=== PATIENT | male | born 1990 | race Caucasian/White ===

== ENCOUNTER 2017-01-05 19:22 | Emergency (ER) | payer OTHER ==
[~2017-01-05] VITALS: Ht 175.3 cm; Wt 89.0 kg
[~2017-01-05 19:22] MED LIST: LOMO PO; PROM25R PR; ZOFR4TAB3 SL
[2017-01-05 19:25] VITALS: BP 118/74; PULSE 93; RESP 18; TEMP 100.3; O2SAT 96
[2017-01-05] MEDS ORDERED: SODIUM CHLOR 0.9% 1000 ML INJ 1,000 ML IV SCH (19:56)
[2017-01-05] MEDS ORDERED: DICYCLOMINE HCL 10 MG CAP PO ONE (20:00)
[2017-01-05] MEDS ORDERED: ONDANSETRON HCL 4 MG/2 ML VIAL IVP ONE (20:00)
[2017-01-05] MEDS ORDERED: SODIUM CHLOR 0.9% 1000 ML INJ 1,000 ML IV ONE (20:00)
[2017-01-05] MEDS ORDERED: FAMOTIDINE 20 MG/2 ML VIAL IV PUSH ONE (20:00)
[2017-01-05] MEDS ORDERED: SODIUM CHLORIDE 0.9% FLUSH 10 ML FLUSH IV FLUSH PRN (20:00)
--- NOTE | 2017-01-05 20:19 | PD ---
HPI Chief Complaint: GI Complaint Time Seen by Provider: 19:52 Travel History International Travel<30 days: No Contact w/Intl Traveler<30days: No Traveled to known affect area: No History of Present Illness HPI Patient is a 26-year-old male who presents to emergency room with complaints of nausea, vomiting, diarrhea. Patient reports that this morning, he had breakfast at [employer], he reports that shortly after he had this meal, he began to feel nauseous and began to vomit. Reports that he has been vomiting all day, reports that he has not been able to keep down any fluids. Reports that he has had about 3 bouts of diarrhea today. Patient reports no abdominal pain, no fevers or chills. Patient with no sick contacts, denies any recent travels. Patient with no other complaints at this time. PFSH Past Medical History Autoimmune Disease: Yes Blood Disorders: No Anxiety: No Depression: No Cancer: No Cardiovascular Problems: No Diabetes: No Diminished Hearing: No Glaucoma: No Genitourinary: Yes Hepatitis: No Hiatal Hernia: No Hypertension: No Musculoskeletal: No Neurologic: No Psychiatric: No Respiratory: Yes Immunizations Current: Yes Thyroid Disease: No Tetanus Vaccination: Unknown Influenza Vaccination: No Past Surgical History Abdominal Surgery: No Cardiac Surgery: No Ear Surgery: No Endocrine Surgery: No Eye Surgery: No Genitourinary Surgery: No Gynecologic Surgery: No Oral Surgery: No Pacemaker: No Thoracic Surgery: No Tonsillectomy: Yes Other Surgery: No Social History Alcohol Use: Yes (SOCIAL) Tobacco Use: No Substance Use: No Allergies-Medications (Allergen,Severity, Reaction): Coded Allergies: No Known Allergies (Verified , 01/05/17) Reported Meds & Prescriptions Reported Meds & Active Scripts Active Review of Systems General / Constitutional: No: Fever, Chills Eyes: No: Visual changes HENT: No: Headaches Cardiovascular: No: Chest Pain or Discomfort Respiratory: No: Shortness of Breath Gastrointestinal: Positive: Nausea, Vomiting, Diarrhea, No: Abdominal Pain Genitourinary: No: Dysuria Musculoskeletal: No: Pain Skin: No Rash Neurologic: No: Weakness Psychiatric: No: Depression Endocrine: No: Polydipsia Hematologic/Lymphatic: No: Easy Bruising Physical Exam Narrative GENERAL: No acute distress, nontoxic SKIN: Focused skin assessment warm/dry. HEAD: Atraumatic. Normocephalic. EYES: Pupils equal and round. No scleral icterus. No injection or drainage. ENT: No nasal bleeding or discharge. Mucous membranes pink and moist. NECK: Trachea midline. No JVD. CARDIOVASCULAR: Regular rate and rhythm. No murmur appreciated. RESPIRATORY: No accessory muscle use. Clear to auscultation. Breath sounds equal bilaterally. GASTROINTESTINAL: Abdomen soft, non-tender, nondistended. MUSCULOSKELETAL: No obvious deformities. No clubbing. No cyanosis. No edema. NEUROLOGICAL: Awake and alert. Normal speech. PSYCHIATRIC: Appropriate mood and affect; insight and judgment normal. Data Data Last Documented VS Vital Signs Date Time Temp Pulse Resp B/P Pulse Ox O2 Delivery O2 Flow Rate FiO2 01/05/17 21:07 99.8 85 18 140/62 98 Room Air Orders Complete Blood Count With Diff (01/05/17 19:56) Comprehensive Metabolic Panel (01/05/17 19:56) Lipase (01/05/17 19:56) Urinalysis - C+S If Indicated (01/05/17 19:56) Iv Access Insert/Monitor (01/05/17 19:56) Ondansetron Inj (Zofran Inj) (01/05/17 20:00) Sodium Chlor 0.9% 1000 Ml Inj (Ns 1000 M (01/05/17 19:56) Sodium Chloride 0.9% Flush (Ns Flush) (01/05/17 20:00) Famotidine Inj (Pepcid Inj) (01/05/17 20:00) Dicyclomine (Bentyl) (01/05/17 20:00) Sodium Chlor 0.9% 1000 Ml Inj (Ns 1000 M (01/05/17 20:00) Labs Laboratory Tests Test 01/05/17 01/05/17 20:09 21:00 White Blood Count 15.3 TH/MM3 Red Blood Count 5.50 MIL/MM3 Hemoglobin 16.8 GM/DL Hematocrit 48.7 % Mean Corpuscular Volume 88.6 FL Mean Corpuscular Hemoglobin 30.6 PG Mean Corpuscular Hemoglobin 34.5 % Concent Red Cell Distribution Width 11.9 % Platelet Count 174 TH/MM3 Mean Platelet Volume 11.0 FL Neutrophils (%) (Auto) 86.0 % Lymphocytes (%) (Auto) 3.4 % Monocytes (%) (Auto) 5.2 % Eosinophils (%) (Auto) 0.1 % Basophils (%) (Auto) 5.3 % Neutrophils # (Auto) 13.2 TH/MM3 Lymphocytes # (Auto) 0.5 TH/MM3 Monocytes # (Auto) 0.8 TH/MM3 Eosinophils # (Auto) 0.0 TH/MM3 Basophils # (Auto) 0.8 TH/MM3 CBC Comment AUTO DIFF Differential Total Cells 100 Counted Neutrophils % (Manual) 92 % Lymphocytes % 4 % Monocytes % 4 % Neutrophils # (Manual) 14.1 TH/MM3 Differential Comment AUTO DIFF CONFIRMED Atypical Lymphocytes % Platelet Estimate NORMAL Platelet Morphology Comment NORMAL Red Cell Morphology Comment NORMAL Sodium Level 139 MEQ/L Potassium Level 4.2 MEQ/L Chloride Level 102 MEQ/L Carbon Dioxide Level 29.3 MEQ/L Anion Gap 8 MEQ/L Blood Urea Nitrogen 14 MG/DL Creatinine 1.30 MG/DL Estimat Glomerular Filtration 68 ML/MIN Rate Random Glucose 112 MG/DL Calcium Level 9.3 MG/DL Total Bilirubin 0.7 MG/DL Aspartate Amino Transf 19 U/L (AST/SGOT) Alanine Aminotransferase 26 U/L (ALT/SGPT) Alkaline Phosphatase 103 U/L Total Protein 7.8 GM/DL Albumin 4.2 GM/DL Lipase 118 U/L Urine Color YELLOW Urine Turbidity CLEAR Urine pH 6.0 Urine Specific [place] 1.027 Urine Protein TRACE mg/dL Urine Glucose (UA) NEG mg/dL Urine Ketones TRACE mg/dL Urine Occult Blood NEG Urine Nitrite NEG Urine Bilirubin NEG Urine Leukocyte Esterase NEG Urine WBC 0-2 /hpf Urine Squamous Epithelial 0-5 /hpf Cells Microscopic Urinalysis Comment CULT NOT INDICATED MDM Medical Decision Making Medical Screen Exam Complete: Yes Emergency Medical Condition: Yes Interpretation(s) Vital Signs Date Time Temp Pulse Resp B/P Pulse Ox O2 Delivery O2 Flow Rate FiO2 01/05/17 19:35 18 01/05/17 19:25 100.3 93 18 118/74 96 Differential Diagnosis Acute gastroenteritis, gastritis, electrolyte abnormality, UTI, viral syndrome, appendicitis, cholecystitis Narrative Course Patient is a 26-year-old male who presents to emergency room with complaints of nausea, vomiting and diarrhea since this morning shortly after he had [employer] for breakfast. Patient reports that he has not been able to keep down any fluids all day, denies any abdominal pain, fevers or chills at this time. Overall, patient is nontoxic and evaluation. His abdomen is soft, nontender, nondistended, no peritoneal signs. Plan to obtain lab work as well as administered 2 L of IV fluids, Zofran, Bentyl as well as Pepcid. We'll monitor and perform serial abdominal exams. 9pm: patient re-evaluated, abdomen is soft, nontender, nondistended, no peritoneal signs, patient with no abdominal pain at this time. I did review all labs and all studies with patient in detail. I also reviewed signs and symptoms of acute abdomen. wbc: 15.3 Hemoglobin 16.8 Hematocrit 48.7 Platelets 174 Sodium 139 Chloride 102 Potassium 4.2 BUN 14 Creatinine 1.3 GFR 68 LFTs: wnl ua: Trace ketones 945pm: Patient reevaluated, abdomen is soft, nontender, nondistended, no peritoneal signs. Patient tolerated a cup of Gatorade, patient reports that he is feeling much better at this time, denies nausea and requested discharge from home. I did review with patient as well as mother signs and symptoms of acute abdomen, patient understands when to return to the emergency room. Patient will return to emergency room as needed, he will follow up with his primary doctor. All labs also reviewed patient in detail. Patient thankful for care. Diagnosis Primary Impression: Nausea & vomiting Qualified Code: R11.2 - Non-intractable vomiting with nausea, unspecified vomiting type Additional Impression: Dehydration Patient Instructions: General Instructions Departure Forms: Tests/Procedures, Work Release Enter return to work date: Jan 07, 2017 Additional Instructions: Return to emergency room as needed Please eat a bland diet for the next few days Return to the emergency room if you develop any fevers or chills or abdominal pain Please call your primary care doctor for earliest follow-up Med/Other Pt SpecificInfo: Prescription(s) given Scripts Dicyclomine (Bentyl)20 Mg Tab20 Mg PO TID #20 TAB Ref 0 Prov:Lady Mandujano DO 01/05/17 Ondansetron Odt (Zofran Odt)4 Mg Tab4 Mg SL Q6HR PRN (Nausea/Vomiting) #30 TAB Ref 0 Prov:Lady Mandujano DO 01/05/17 Disposition: 01 DISCHARGE HOME Condition: Stable Lady Mandujano DO Jan 05, 2017 20:19
[2017-01-05 20:22] VITALS: BP 137/69; PULSE 81; RESP 18; O2SAT 98
[2017-01-05 20:30] LABS: AUTOMATED NEUTROPHIL # 13.2 TH/MM3 (1.8-7.7); BASOPHIL # 0.8 TH/MM3 (0-0.2); BASOPHIL % 5.3 % (0.0-2.0); EOSINOPHIL % 0.1 % (0.0-4.0); HEMATOCRIT 48.7 % (39.0-51.0); LYMPH % 3.4 % (9.0-44.0); LYMPHOCYTE # 0.5 TH/MM3 (1.0-4.8); MEAN CELL VOLUME 88.6 FL (80.0-100.0); MEAN CORPUSCULAR HEMOGLOBIN 30.6 PG (27.0-34.0); MEAN CORPUSCULAR HGB CONC 34.5 % (32.0-36.0); MONO % 5.2 % (0.0-8.0); PLATELET COUNT 174 TH/MM3 (150-450); RED CELL DISTRIBUTION WIDTH 11.9 % (11.6-17.2); WHITE BLOOD COUNT 15.3 TH/MM3 (4.0-11.0)
[2017-01-05 20:35] LABS: HEMO FLAGS AUTO DIFF
[2017-01-05 20:43] LABS: CHLORIDE 102 MEQ/L (98-107); POTASSIUM 4.2 MEQ/L (3.5-5.1); SODIUM (NA) 139 MEQ/L (136-145)
[2017-01-05 20:47] LABS: ANION GAP 8 MEQ/L (5-15); BICARBONATE 29.3 MEQ/L (21.0-32.0); BLOOD UREA NITROGEN 14 MG/DL (7-18)
[2017-01-05 20:50] LABS: ALT (GPT) 26 U/L (12-78); AST (GOT) 19 U/L (15-37); GLOMERULAR FILTRATION RATE 68 ML/MIN (>89)
[2017-01-05 20:51] LABS: TOTAL BILIRUBIN ADULT 0.7 MG/DL (0.2-1.0)
[2017-01-05 20:52] LABS: ALKALINE PHOSPHATASE 103 U/L (45-117)
[2017-01-05 21:07] VITALS: BP 140/62; PULSE 85; RESP 18; TEMP 99.8; O2SAT 98
[2017-01-05 21:09] LABS: NEUTROPHIL # MANUAL DIFF 14.1 TH/MM3 (1.8-7.7); POLYS (SEG NEUTROPHILS) 92 % (16-70); WBC DIFF SAMPLE 100
[2017-01-05 21:10] LABS: PLATELET ESTIMATE SMEAR NORMAL (NORMAL); PLATELET MORPHOLOGY NORMAL (NORMAL); SCAN/DIFF AUTO DIFF CONFIRMED
[2017-01-05 21:16] LABS: BLOOD, URINE NEG (NEG); GLUCOSE,URINE NEG (NEG); KETONE, URINE TRACE mg/dL (NEG); NITRITE,URINE NEG (NEG)
[2017-01-05 21:25] LABS: URINE COLOR YELLOW (YELLW/STRAW)
[2017-01-05 21:26] LABS: COMMENT (UR) CULT NOT INDICATED; CULTURE IF INDICATED CULT NOT INDICATED; SQUAMOUS EPITHELIAL CELL URINE 0-5 /hpf (0-5); WBC, URINE 0-2 /hpf (0-5)
[2017-01-05] MEDS ORDERED: ZOFR4TAB3 SL (21:49)
[2017-01-05] MEDS ORDERED: BENT20TA PO (21:49)
[2017-01-05 22:36] VITALS: BP 136/59
== END 2017-01-05 22:40 | disposition home or self-care (01) ==
LOC: PHED 19:22
DX: E86.0 Dehydration (principal)
CPT/HCPCS: 80053; 81001; 83690; 85025; 96360; 96361; 96374; 96375; 99284; J2405; J7030